=== PATIENT | female | born 1940 | race Caucasian/White ===

== ENCOUNTER 2020-02-16 13:35 | Inpatient (IN) ==
[2020-02-16 14:02] LABS: Bilirubin,Urine Negative (Negative); Blood, Urine Small mg/dL (Negative); Glucose,Urine (UA) Negative (Negative); Ketones,Urine 20 mg/dL (Negative); Mucus,Urine Occasional /LPF (Occasional); Nitrite,Urine Positive (Negative); Protein,Urine 30 MG/DL; RBC,Urine 1 /HPF (0-4); Squamous Epithelial Cell,Urine Occasional /HPF (0-10); Urine Appearance CLEAR (Clear); Urine Color Amber (Yellow); Urine Specific Gravity 1.024 (1.001-1.035); WBC,Urine 3 /HPF (0-6)
[2020-02-16 14:26] LABS: Basophils % 0.4 % (0.0-0.8); Hematocrit 39.1 VOL% (35.7-47.0); Hemoglobin 13.3 GM/DL (12.0-16.0); Lymphocytes # 1.1 10*3/uL (1.4-4.0); Lymphocytes % 22.4 % (21.3-54.2); Mean Corpuscular Volume 96.3 FL (87-102); Mean Platelet Volume 10.6 FL (9.6-12.0); Monocytes % 13.3 % (1.7-12.7); Neutrophils % 63.9 % (38.7-73.9); Platelet Count 167 T/CUMM (130-400); Red Blood Count 4.06 MC/CUMM (3.8-5.5); Red Cell Distribution Width 13.1 % (9.3-17.3); White Blood Count 5.1 T/CUMM (4-12)
[2020-02-16 14:53] LABS: Albumin 3.5 G/DL (3.4-5.0); Bilirubin,Total 0.6 MG/DL (0.2-1.0); Calcium 8.3 MG/DL (8.5-10.1); Osmolality,Calculated 260.8 MOS/KG (273-304)
[2020-02-16] MEDS ORDERED: SODIUM CHLORIDE 0.9% 1,000 ML IV STA (15:45)
[2020-02-16] MEDS ORDERED: MORPHINE 4 MG/1 ML VIAL IV PRN (18:30)
[2020-02-16] MEDS ORDERED: DEXTROSE 50% 25 GM/50 ML VIAL IV PRN (18:30)
[2020-02-16] MEDS ORDERED: DOCUSATE SODIUM 100 MG CAPSULE PO PRN (18:30)
[2020-02-16] MEDS ORDERED: LACTULOSE 20 GM/30 ML UDCUP PO PRN (18:30)
[2020-02-16] MEDS ORDERED: hydrALAZINE 20 MG/1 ML VIAL IV PRN (18:30)
[2020-02-16] MEDS ORDERED: GLUCAGON 1 MG VIAL IM PRN (18:30)
[2020-02-16] MEDS: cefTRIAXone 1,000 MG in SYRINGE 1 EACH IV SCH (19:10)
[2020-02-16] MEDS: SODIUM CHLORIDE 0.9% 1,000 ML IV SCH (20:50)
[2020-02-16] MEDS ORDERED: SODIUM CHLORIDE 0.9% 1,000 ML IV ONE (21:00)
[2020-02-16] MEDS: ACETAMINOPHEN 325 MG TABLET PO PRN (22:12)
[2020-02-16] MEDS: ENOXAPARIN 40 MG/0.4 ML SYRINGE SUBCUT SCH (22:28)
[2020-02-17 04:48] LABS: Basophils % 0.3 % (0.0-0.8); Eosinophils % 0.3 % (0.00-10.9); Hematocrit 36.4 VOL% (35.7-47.0); Hemoglobin 12.3 GM/DL (12.0-16.0); Immature Granulocytes % 0.6 %; Immature Granulocytes Absolute 0.02 #; Lymphocytes # 1.3 10*3/uL (1.4-4.0); Lymphocytes % 36.2 % (21.3-54.2); Mean Corpuscular HGB Conc 33.8 GM/DL (32-36); Mean Corpuscular Volume 96.8 FL (87-102); Mean Platelet Volume 10.2 FL (9.6-12.0); Monocytes % 13.6 % (1.7-12.7); Platelet Count 164 T/CUMM (130-400); Red Blood Count 3.76 MC/CUMM (3.8-5.5); Red Cell Distribution Width 13.2 % (9.3-17.3); White Blood Count 3.6 T/CUMM (4-12)
[2020-02-17] MEDS: ACETAMINOPHEN 325 MG TABLET PO PRN ×2 (05:08→20:35)
[2020-02-17] MEDS: ONDANSETRON 4 MG/2 ML VIAL IV PRN ×2 (05:10→09:03)
[2020-02-17 05:25] LABS: PT Patient Result 10.5 SECS (9.8-11.9)
[2020-02-17 05:29] LABS: Alanine Aminotransferase 20 U/L (13-56); Albumin 3.1 G/DL (3.4-5.0); Alkaline Phosphatase 71 U/L (45-117); Aspartate Amino Transferase 31 U/L (0-37); Bilirubin,Total < 0.39 MG/DL (0.2-1.0); Blood Urea Nitrogen 14 MG/DL (7-18); Calcium 7.7 MG/DL (8.5-10.1); Estimated Glom Filtration Rate 73 ML/MIN; Ferritin 332.6 ng/ml (8-252); Glucose 81 MG/DL (74-106); HDL Cholesterol 75 MG/DL (40-60); Osmolality,Calculated 261.7 MOS/KG (273-304); Risk Ratio 1.73; Total Protein 6.1 G/DL (6.4-8.3); Triglycerides 85 MG/DL (2-150)
[2020-02-17 07:03] LABS: Sedimentation Rate-Westergren 25 MM/HR (0-30)
[2020-02-17] MEDS ORDERED: POTASSIUM CHLORIDE 20 MEQ TABLET PO ONE (08:05)
[2020-02-17] MEDS: AZITHROMYCIN 250 MG TABLET PO SCH (08:48)
[2020-02-17] MEDS: DEXAMETHASONE 10 MG/1 ML VIAL IV SCH (08:48)
[2020-02-17] MEDS: PANTOPRAZOLE 40 MG TABLET PO SCH (08:48)
[2020-02-17] MEDS: ASCORBIC ACID 500 MG TABLET PO SCH ×2 (08:48→20:10)
[2020-02-17] MEDS: ZINC SULFATE 220 MG CAPSULE PO SCH (08:48)
[2020-02-17] MEDS: SODIUM CHLORIDE 0.9% 1,000 ML IV SCH ×2 (17:12→20:40)
[2020-02-17] MEDS: cefTRIAXone 1,000 MG in SYRINGE 1 EACH IV SCH (18:29)
[2020-02-17] MEDS: ENOXAPARIN 40 MG/0.4 ML SYRINGE SUBCUT SCH ×2 (20:10→20:35)
[2020-02-17] MEDS: POTASSIUM CHLORIDE 10 MEQ TABLET PO SCH (20:10)
[2020-02-18 06:09] LABS: Hematocrit 38.1 VOL% (35.7-47.0); Hemoglobin 12.6 GM/DL (12.0-16.0); Immature Granulocytes % 0.5 %; Immature Granulocytes Absolute 0.02 #; Lymphocytes # 1.2 10*3/uL (1.4-4.0); Lymphocytes % 30.8 % (21.3-54.2); Mean Corpuscular HGB Conc 33.1 GM/DL (32-36); Mean Corpuscular Volume 99.2 FL (87-102); Mean Platelet Volume 10.7 FL (9.6-12.0); Monocytes % 11.6 % (1.7-12.7); Neutrophils % 57.1 % (38.7-73.9); Platelet Count 174 T/CUMM (130-400); Red Blood Count 3.84 MC/CUMM (3.8-5.5); Red Cell Distribution Width 13.1 % (9.3-17.3); White Blood Count 3.9 T/CUMM (4-12)
[2020-02-18 06:40] LABS: Albumin 2.8 G/DL (3.4-5.0); Bilirubin,Total 0.7 MG/DL (0.2-1.0); Ferritin 319.2 ng/ml (8-252); Osmolality,Calculated 269.2 MOS/KG (273-304)
[2020-02-18] MEDS ORDERED: LEVOTHYROXINE 88 MCG TABLET PO SCH (07:00)
[2020-02-18 07:58] LABS: Sedimentation Rate-Westergren 14 MM/HR (0-30)
[2020-02-18] MEDS: PANTOPRAZOLE 40 MG TABLET PO SCH (08:25)
[2020-02-18] MEDS: DEXAMETHASONE 10 MG/1 ML VIAL IV SCH (08:25)
[2020-02-18] MEDS: POTASSIUM CHLORIDE 10 MEQ TABLET PO SCH (08:26)
[2020-02-18] MEDS: AZITHROMYCIN 250 MG TABLET PO SCH (08:26)
[2020-02-18] MEDS: ASCORBIC ACID 500 MG TABLET PO SCH (08:26)
[2020-02-18] MEDS: ZINC SULFATE 220 MG CAPSULE PO SCH (08:26)
[2020-02-18] MEDS ORDERED: ATORVASTATIN 10 MG TABLET PO SCH (09:00)
[2020-02-18] MEDS: SODIUM CHLORIDE 0.9% 1,000 ML IV SCH (09:59)
[2020-02-18 11:33] VITALS: BP 145/62
== END 2020-02-18 13:45 | disposition home health service (06) | DRG 177 ==
LOC: EDUNIT# 13:35 → N.ED 13:35 → N.EDINP 18:30 → SUATTDRO 18:30 → N.EDINP 02-17 14:52 → N.2E 02-17 14:56
PROVIDERS: ADMIT Physician Assistant; ATTEND Internal Medicine

== ENCOUNTER 2020-02-20 08:14 | Inpatient (IN) ==
[2020-02-20] MEDS ORDERED: SODIUM CHLORIDE 0.9% 1,000 ML IV STA (08:30)
[2020-02-20 08:40] LABS: Basophils % 0.2 % (0.0-0.8); Eosinophils % 0.2 % (0.00-10.9); Hematocrit 40.6 VOL% (35.7-47.0); Immature Granulocytes % 0.3 %; Immature Granulocytes Absolute 0.02 #; Lymphocytes % 15.9 % (21.3-54.2); Mean Corpuscular HGB Conc 34.5 GM/DL (32-36); Mean Corpuscular Volume 96.2 FL (87-102); Mean Platelet Volume 10.3 FL (9.6-12.0); Monocytes % 10.5 % (1.7-12.7); Neutrophils % 72.9 % (38.7-73.9); Platelet Count 211 T/CUMM (130-400); Red Blood Count 4.22 MC/CUMM (3.8-5.5); White Blood Count 6.3 T/CUMM (4-12)
[2020-02-20 08:48] LABS: INR 0.9; PT Patient Result 9.8 SECS (9.8-11.9)
[2020-02-20 09:01] LABS: Albumin 3.1 G/DL (3.4-5.0); Bilirubin,Total 0.4 MG/DL (0.2-1.0); Calcium 8.3 MG/DL (8.5-10.1); Osmolality,Calculated 262.7 MOS/KG (273-304); Total Protein 6.8 G/DL (6.4-8.3)
[2020-02-20 09:45] LABS: ABG Base Excess 3.2 MMOL/L (-2.5-2.5); ABG HCO3 27.1 MMOL/L (20-26); ABG Oxygen Saturation 91.3 % (95-100); ABG PCO2 38.1 MM HG (35-48); ABG PO2 60.7 MM HG (80-95); ABG TCO2 23.8 MMOL/L (23-27)
[2020-02-20] MEDS ORDERED: DEXTROSE 50% 25 GM/50 ML VIAL IV PRN (10:56)
[2020-02-20] MEDS ORDERED: PROMETHAZINE 25 MG TABLET PO PRN (10:56)
[2020-02-20] MEDS ORDERED: GLUCAGON 1 MG VIAL IM PRN (10:56)
[2020-02-20] MEDS ORDERED: ENOXAPARIN 40 MG/0.4 ML SYRINGE SUBCUT SCH (11:00)
[2020-02-20] MEDS ORDERED: REMDESIVIR 200 MG in SODIUM CHLORIDE 0.9% 210 ML IV ONE (12:30)
[2020-02-20] MEDS ORDERED: SODIUM CHLORIDE 0.9% 1,000 ML IV PRN (14:39)
[2020-02-20] MEDS: ACETAMINOPHEN 325 MG TABLET PO PRN ×2 (15:06→20:25)
[2020-02-20] MEDS: POTASSIUM CHLORIDE 10 MEQ TABLET PO SCH (20:25)
[2020-02-20] MEDS: ASCORBIC ACID 500 MG TABLET PO SCH (20:25)
[2020-02-21] MEDS: ACETAMINOPHEN 325 MG TABLET PO PRN (02:07)
[2020-02-21] MEDS: guaiFENesin 200 MG/10 ML UDCUP PO PRN ×2 (02:07→10:17)
[2020-02-21 06:00] LABS: Basophils % 0.2 % (0.0-0.8); Hematocrit 37.3 VOL% (35.7-47.0); Hemoglobin 12.5 GM/DL (12.0-16.0); Immature Granulocytes % 0.5 %; Immature Granulocytes Absolute 0.03 #; Lymphocytes # 0.7 10*3/uL (1.4-4.0); Lymphocytes % 12.5 % (21.3-54.2); Mean Corpuscular HGB Conc 33.5 GM/DL (32-36); Mean Corpuscular Volume 97.1 FL (87-102); Mean Platelet Volume 10.7 FL (9.6-12.0); Monocytes % 8.2 % (1.7-12.7); Neutrophils % 78.6 % (38.7-73.9); Platelet Count 214 T/CUMM (130-400); Red Blood Count 3.84 MC/CUMM (3.8-5.5); Red Cell Distribution Width 13.1 % (9.3-17.3); White Blood Count 5.8 T/CUMM (4-12)
[2020-02-21 06:12] LABS: Osmolality,Calculated 266.4 MOS/KG (273-304)
[2020-02-21 07:22] LABS: Bilirubin,Urine Negative (Negative); Blood, Urine Negative (Negative); Glucose,Urine (UA) Negative (Negative); Ketones,Urine 5 mg/dL (Negative); Mucus,Urine Occasional /LPF (Occasional); Nitrite,Urine Negative (Negative); Protein,Urine Negative; RBC,Urine 2 /HPF (0-4); Squamous Epithelial Cell,Urine Occasional /HPF (0-10); Urine Appearance CLEAR (Clear); Urine Color Yellow (Yellow); Urine Specific Gravity 1.019 (1.001-1.035); Urine Urobilinogen < 2.0 EU/DL (0.2-1.0); WBC,Urine 1 /HPF (0-6)
[2020-02-21] MEDS: RIVAROXABAN 10 MG TABLET PO SCH (08:50)
[2020-02-21] MEDS: DEXAMETHASONE 4 MG TABLET PO SCH (08:51)
[2020-02-21] MEDS: ATORVASTATIN 10 MG TABLET PO SCH (08:51)
[2020-02-21] MEDS: ASCORBIC ACID 500 MG TABLET PO SCH ×2 (08:51→20:30)
[2020-02-21] MEDS: ZINC SULFATE 220 MG CAPSULE PO SCH (08:51)
[2020-02-21] MEDS: POTASSIUM CHLORIDE 10 MEQ TABLET PO SCH ×2 (08:51→20:30)
[2020-02-21] MEDS: BENZONATATE 100 MG CAPSULE PO SCH ×2 (08:51→20:30)
[2020-02-21] MEDS: LEVOTHYROXINE 88 MCG TABLET PO SCH (08:51)
[2020-02-21] MEDS: PANTOPRAZOLE 40 MG TABLET PO SCH (08:51)
[2020-02-21] MEDS ORDERED: MAGNESIUM SULF RIDER 2 GM in PREMIX 1 EACH IV ONE (09:00)
[2020-02-21] MEDS ORDERED: PANTOPRAZOLE 40 MG TABLET PO SCH (09:00)
[2020-02-21] MEDS: REMDESIVIR 100 MG in SODIUM CHLORIDE 0.9% 230 ML IV SCH (09:52)
[2020-02-21] MEDS: ONDANSETRON 4 MG/2 ML VIAL IV PRN (10:17)
[2020-02-22 05:28] LABS: Basophils % 0.2 % (0.0-0.8); Hematocrit 38.1 VOL% (35.7-47.0); Hemoglobin 12.6 GM/DL (12.0-16.0); Immature Granulocytes % 0.6 %; Immature Granulocytes Absolute 0.03 #; Lymphocytes # 0.7 10*3/uL (1.4-4.0); Lymphocytes % 14.1 % (21.3-54.2); Mean Corpuscular HGB Conc 33.1 GM/DL (32-36); Mean Corpuscular Volume 96.2 FL (87-102); Mean Platelet Volume 11.7 FL (9.6-12.0); Monocytes % 10.9 % (1.7-12.7); Neutrophils % 74.2 % (38.7-73.9); Platelet Count 214 T/CUMM (130-400); Red Blood Count 3.96 MC/CUMM (3.8-5.5); Red Cell Distribution Width 13.1 % (9.3-17.3); White Blood Count 5.1 T/CUMM (4-12)
[2020-02-22 05:50] LABS: Calcium 8.3 MG/DL (8.5-10.1); Osmolality,Calculated 268.4 MOS/KG (273-304)
[2020-02-22 06:42] LABS: Hypochromasia Slight; Microcytosis Slight; Ovalocytes Slight
[2020-02-22 06:43] LABS: Platelet Estimate Normal
[2020-02-22] MEDS: ZINC SULFATE 220 MG CAPSULE PO SCH (08:35)
[2020-02-22] MEDS: REMDESIVIR 100 MG in SODIUM CHLORIDE 0.9% 230 ML IV SCH (08:35)
[2020-02-22] MEDS: POTASSIUM CHLORIDE 10 MEQ TABLET PO SCH ×2 (08:36→22:58)
[2020-02-22] MEDS: ASCORBIC ACID 500 MG TABLET PO SCH ×2 (08:36→22:58)
[2020-02-22] MEDS: RIVAROXABAN 10 MG TABLET PO SCH (08:36)
[2020-02-22] MEDS: ATORVASTATIN 10 MG TABLET PO SCH (08:36)
[2020-02-22] MEDS: PANTOPRAZOLE 40 MG TABLET PO SCH (08:36)
[2020-02-22] MEDS: BENZONATATE 100 MG CAPSULE PO SCH ×2 (08:36→22:58)
[2020-02-22] MEDS: LEVOTHYROXINE 88 MCG TABLET PO SCH (08:36)
[2020-02-22] MEDS: ONDANSETRON 4 MG/2 ML VIAL IV PRN ×2 (08:37→22:57)
[2020-02-22] MEDS: DEXAMETHASONE 4 MG TABLET PO SCH (08:37)
[2020-02-22 10:02] LABS: ABG Base Excess 0.8 MMOL/L (-2.5-2.5); ABG HCO3 25.2 MMOL/L (20-26); ABG Oxygen Saturation 98.9 % (95-100); ABG PCO2 36.6 MM HG (35-48); ABG PH 7.438 (7.35-7.45); ABG TCO2 21.7 MMOL/L (23-27)
[2020-02-23 06:17] LABS: Basophils % 0.1 % (0.0-0.8); Hemoglobin 12.5 GM/DL (12.0-16.0); Immature Granulocytes % 0.4 %; Immature Granulocytes Absolute 0.05 #; Lymphocytes # 0.7 10*3/uL (1.4-4.0); Lymphocytes % 6.5 % (21.3-54.2); Mean Corpuscular HGB Conc 33.8 GM/DL (32-36); Mean Corpuscular Volume 96.4 FL (87-102); Mean Platelet Volume 10.8 FL (9.6-12.0); Monocytes % 6.4 % (1.7-12.7); Neutrophils % 86.6 % (38.7-73.9); Platelet Count 224 T/CUMM (130-400); Red Blood Count 3.84 MC/CUMM (3.8-5.5); Red Cell Distribution Width 13.2 % (9.3-17.3); White Blood Count 11.3 T/CUMM (4-12)
[2020-02-23 06:49] LABS: Calcium 8.2 MG/DL (8.5-10.1); Osmolality,Calculated 271.4 MOS/KG (273-304)
[2020-02-23] MEDS: ZINC SULFATE 220 MG CAPSULE PO SCH ×2 (08:38→09:23)
[2020-02-23] MEDS: ATORVASTATIN 10 MG TABLET PO SCH ×2 (08:38→09:22)
[2020-02-23] MEDS: LEVOTHYROXINE 88 MCG TABLET PO SCH ×2 (08:38→09:22)
[2020-02-23] MEDS: ASCORBIC ACID 500 MG TABLET PO SCH ×2 (08:38→09:23)
[2020-02-23] MEDS: BENZONATATE 100 MG CAPSULE PO SCH ×2 (08:38→09:22)
[2020-02-23] MEDS: PANTOPRAZOLE 40 MG TABLET PO SCH ×2 (08:39→09:22)
[2020-02-23] MEDS: DEXAMETHASONE 4 MG TABLET PO SCH ×2 (08:39→09:22)
[2020-02-23] MEDS: POTASSIUM CHLORIDE 10 MEQ TABLET PO SCH ×2 (09:09→09:22)
[2020-02-23] MEDS: REMDESIVIR 100 MG in SODIUM CHLORIDE 0.9% 230 ML IV SCH (09:09)
[2020-02-23] MEDS: RIVAROXABAN 10 MG TABLET PO SCH ×2 (09:09→09:23)
[2020-02-23 09:38] LABS: ABG Base Excess 1.9 MMOL/L (-2.5-2.5); ABG HCO3 25.9 MMOL/L (20-26); ABG Oxygen Saturation 92.5 % (95-100); ABG PCO2 37.7 MM HG (35-48); ABG PH 7.443 (7.35-7.45); ABG TCO2 22.7 MMOL/L (23-27)
[2020-02-23] MEDS: CEFEPIME 1,000 MG in SODIUM CHLORIDE 0.9% 100 ML IV SCH (14:36)
[2020-02-23] MEDS: ACETAMINOPHEN 325 MG TABLET PO PRN (14:36)
[2020-02-24] MEDS: CEFEPIME 1,000 MG in SODIUM CHLORIDE 0.9% 100 ML IV SCH ×4 (00:45→17:13)
[2020-02-24] MEDS: POTASSIUM CHLORIDE 10 MEQ TABLET PO SCH ×3 (00:46→21:52)
[2020-02-24] MEDS: ASCORBIC ACID 500 MG TABLET PO SCH ×3 (00:46→21:52)
[2020-02-24] MEDS: BENZONATATE 100 MG CAPSULE PO SCH ×3 (00:46→21:54)
[2020-02-24] MEDS ORDERED: METOCLOPRAMIDE 10 MG/2 ML VIAL IV PRN (09:10)
[2020-02-24] MEDS: REMDESIVIR 100 MG in SODIUM CHLORIDE 0.9% 230 ML IV SCH (11:00)
[2020-02-24] MEDS: DEXAMETHASONE 4 MG/1 ML VIAL IV SCH (11:00)
[2020-02-24] MEDS: FAMOTIDINE 20 MG/2 ML VIAL IV SCH ×2 (11:01→21:54)
[2020-02-24] MEDS: ONDANSETRON 4 MG/2 ML VIAL IV PRN (11:02)
[2020-02-24] MEDS: LEVOTHYROXINE 88 MCG TABLET PO SCH (11:06)
[2020-02-24] MEDS: ZINC SULFATE 220 MG CAPSULE PO SCH (11:06)
[2020-02-24] MEDS: ATORVASTATIN 10 MG TABLET PO SCH (11:06)
[2020-02-24] MEDS: RIVAROXABAN 10 MG TABLET PO SCH (11:06)
[2020-02-24] MEDS: DEXAMETHASONE 4 MG TABLET PO SCH (11:07)
[2020-02-24] MEDS: PANTOPRAZOLE 40 MG TABLET PO SCH (11:08)
[2020-02-24] MEDS: DICLOFENAC 1% GEL 100 GM TUBE TOP SCH ×4 (11:47→21:54)
[2020-02-24] MEDS: ENOXAPARIN 40 MG/0.4 ML SYRINGE SUBCUT SCH (21:53)
[2020-02-25] MEDS: CEFEPIME 1,000 MG in SODIUM CHLORIDE 0.9% 100 ML IV SCH ×4 (00:52→17:18)
[2020-02-25 04:27] LABS: Allen Test Positive
[2020-02-25 04:29] LABS: ABG HCO3 24.2 MMOL/L (20-26); ABG Oxygen Saturation 86.4 % (95-100); ABG PCO2 36.8 MM HG (35-48); ABG PH 7.423 (7.35-7.45); ABG PO2 53.1 MM HG (80-95); ABG TCO2 21.5 MMOL/L (23-27)
[2020-02-25 06:00] LABS: Basophils % 0.1 % (0.0-0.8); Hematocrit 35.1 VOL% (35.7-47.0); Hemoglobin 11.8 GM/DL (12.0-16.0); Immature Granulocytes % 0.6 %; Immature Granulocytes Absolute 0.07 #; Lymphocytes # 0.6 10*3/uL (1.4-4.0); Lymphocytes % 4.9 % (21.3-54.2); Mean Corpuscular HGB Conc 33.6 GM/DL (32-36); Mean Corpuscular Volume 96.2 FL (87-102); Mean Platelet Volume 10.6 FL (9.6-12.0); Monocytes % 2.8 % (1.7-12.7); Neutrophils % 91.6 % (38.7-73.9); Platelet Count 185 T/CUMM (130-400); Red Blood Count 3.65 MC/CUMM (3.8-5.5); White Blood Count 11.6 T/CUMM (4-12)
[2020-02-25 06:35] LABS: Albumin 2.3 G/DL (3.4-5.0); Bilirubin,Total 1.2 MG/DL (0.2-1.0); Calcium 8.4 MG/DL (8.5-10.1); Osmolality,Calculated 271.2 MOS/KG (273-304)
[2020-02-25 07:11] LABS: Band Neutrophils 1 % (0-10); Lymphocytes 1 % (20-55); Microcytosis Slight; Ovalocytes Slight; Platelet Estimate Adequate; Segmented Neutrophils 96 % (50-85); Total Cells Counted 100
[2020-02-25] MEDS ORDERED: FUROSEMIDE 40 MG/4 ML VIAL IV ONE (08:06)
[2020-02-25] MEDS: ENOXAPARIN 40 MG/0.4 ML SYRINGE SUBCUT SCH ×2 (09:21→20:49)
[2020-02-25] MEDS: DEXAMETHASONE 4 MG/1 ML VIAL IV SCH (09:21)
[2020-02-25] MEDS: ASCORBIC ACID 500 MG TABLET PO SCH ×2 (09:22→20:50)
[2020-02-25] MEDS: ZINC SULFATE 220 MG CAPSULE PO SCH (09:22)
[2020-02-25] MEDS: BENZONATATE 100 MG CAPSULE PO SCH ×2 (09:22→20:50)
[2020-02-25] MEDS: ATORVASTATIN 10 MG TABLET PO SCH (09:22)
[2020-02-25] MEDS: FAMOTIDINE 20 MG/2 ML VIAL IV SCH ×2 (09:22→20:53)
[2020-02-25] MEDS: LEVOTHYROXINE 88 MCG TABLET PO SCH (09:22)
[2020-02-25] MEDS: POTASSIUM CHLORIDE 10 MEQ TABLET PO SCH ×2 (09:22→20:50)
[2020-02-25] MEDS: DICLOFENAC 1% GEL 100 GM TUBE TOP SCH ×4 (09:30→20:50)
[2020-02-25] MEDS: ONDANSETRON 4 MG/2 ML VIAL IV PRN (10:23)
[2020-02-26] MEDS: CEFEPIME 1,000 MG in SODIUM CHLORIDE 0.9% 100 ML IV SCH ×4 (00:55→17:57)
[2020-02-26 06:33] LABS: Basophils % 0.1 % (0.0-0.8); Hematocrit 33.4 VOL% (35.7-47.0); Hemoglobin 11.4 GM/DL (12.0-16.0); Immature Granulocytes % 0.5 %; Immature Granulocytes Absolute 0.06 #; Lymphocytes # 0.4 10*3/uL (1.4-4.0); Lymphocytes % 2.8 % (21.3-54.2); Mean Corpuscular HGB Conc 34.1 GM/DL (32-36); Mean Corpuscular Volume 95.7 FL (87-102); Mean Platelet Volume 10.8 FL (9.6-12.0); Monocytes % 3.6 % (1.7-12.7); Platelet Count 215 T/CUMM (130-400); Red Blood Count 3.49 MC/CUMM (3.8-5.5); Red Cell Distribution Width 13.2 % (9.3-17.3); White Blood Count 13.2 T/CUMM (4-12)
[2020-02-26 06:58] LABS: Calcium 7.9 MG/DL (8.5-10.1); Osmolality,Calculated 273.2 MOS/KG (273-304)
[2020-02-26 07:07] LABS: Hypochromasia 1+; Lymphocytes 2 % (20-55); Microcytosis 1+; Platelet Estimate Adequate; Segmented Neutrophils 95 % (50-85); Total Cells Counted 100
[2020-02-26 08:08] LABS: Calcium 7.8 MG/DL (8.5-10.1); Ferritin 750.5 ng/ml (8-252); Osmolality,Calculated 273.2 MOS/KG (273-304)
[2020-02-26] MEDS: DEXAMETHASONE 4 MG/1 ML VIAL IV SCH (09:47)
[2020-02-26] MEDS: FAMOTIDINE 20 MG/2 ML VIAL IV SCH ×2 (09:47→21:57)
[2020-02-26] MEDS: POTASSIUM CHLORIDE 10 MEQ TABLET PO SCH ×2 (10:03→22:43)
[2020-02-26] MEDS: ATORVASTATIN 10 MG TABLET PO SCH (10:03)
[2020-02-26] MEDS: BENZONATATE 100 MG CAPSULE PO SCH ×2 (10:04→21:58)
[2020-02-26] MEDS: ASCORBIC ACID 500 MG TABLET PO SCH ×2 (10:04→21:58)
[2020-02-26] MEDS: RIVAROXABAN 10 MG TABLET PO SCH (10:04)
[2020-02-26] MEDS: LEVOTHYROXINE 88 MCG TABLET PO SCH (10:04)
[2020-02-26] MEDS: ZINC SULFATE 220 MG CAPSULE PO SCH (10:04)
[2020-02-26] MEDS: DICLOFENAC 1% GEL 100 GM TUBE TOP SCH ×4 (10:04→22:43)
[2020-02-26] MEDS: ENOXAPARIN 40 MG/0.4 ML SYRINGE SUBCUT SCH (10:05)
[2020-02-26] MEDS ORDERED: FUROSEMIDE 40 MG/4 ML VIAL IV ONE (16:59)
[2020-02-27] MEDS: CEFEPIME 1,000 MG in SODIUM CHLORIDE 0.9% 100 ML IV SCH ×4 (01:20→17:24)
[2020-02-27 06:33] LABS: Calcium 8.3 MG/DL (8.5-10.1); Ferritin 600.4 ng/ml (8-252); Osmolality,Calculated 271.4 MOS/KG (273-304)
[2020-02-27] MEDS: DEXAMETHASONE 4 MG/1 ML VIAL PO SCH ×2 (07:59→09:05)
[2020-02-27] MEDS: LEVOTHYROXINE 88 MCG TABLET PO SCH ×3 (08:00→11:53)
[2020-02-27] MEDS: POTASSIUM CHLORIDE 10 MEQ TABLET PO SCH ×3 (08:00→20:55)
[2020-02-27] MEDS: ATORVASTATIN 10 MG TABLET PO SCH ×3 (08:00→11:53)
[2020-02-27] MEDS: ASCORBIC ACID 500 MG TABLET PO SCH ×4 (08:01→20:55)
[2020-02-27] MEDS: RIVAROXABAN 10 MG TABLET PO SCH ×3 (08:01→11:53)
[2020-02-27] MEDS: DICLOFENAC 1% GEL 100 GM TUBE TOP SCH ×4 (08:01→20:55)
[2020-02-27] MEDS: BENZONATATE 100 MG CAPSULE PO SCH ×4 (08:01→20:55)
[2020-02-27] MEDS: ZINC SULFATE 220 MG CAPSULE PO SCH ×3 (08:01→11:53)
[2020-02-27] MEDS: FAMOTIDINE 20 MG/2 ML VIAL IV SCH ×2 (09:02→20:56)
[2020-02-27] MEDS: ONDANSETRON 4 MG/2 ML VIAL IV PRN ×2 (10:31→20:56)
[2020-02-28] MEDS: CEFEPIME 1,000 MG in SODIUM CHLORIDE 0.9% 100 ML IV SCH ×4 (00:56→17:09)
[2020-02-28] MEDS: DEXAMETHASONE 4 MG/1 ML VIAL PO SCH (07:59)
[2020-02-28] MEDS: BENZONATATE 100 MG CAPSULE PO SCH ×2 (08:00→20:57)
[2020-02-28] MEDS: LEVOTHYROXINE 88 MCG TABLET PO SCH (08:00)
[2020-02-28] MEDS: ZINC SULFATE 220 MG CAPSULE PO SCH (08:00)
[2020-02-28] MEDS: DICLOFENAC 1% GEL 100 GM TUBE TOP SCH ×4 (08:00→20:57)
[2020-02-28] MEDS: ASCORBIC ACID 500 MG TABLET PO SCH ×2 (08:00→20:57)
[2020-02-28] MEDS: RIVAROXABAN 10 MG TABLET PO SCH (08:00)
[2020-02-28] MEDS: ATORVASTATIN 10 MG TABLET PO SCH (08:00)
[2020-02-28] MEDS: POTASSIUM CHLORIDE 10 MEQ TABLET PO SCH ×2 (08:01→20:57)
[2020-02-28] MEDS: ONDANSETRON 4 MG/2 ML VIAL IV PRN (09:14)
[2020-02-28] MEDS: FAMOTIDINE 20 MG/2 ML VIAL IV SCH ×2 (09:41→20:57)
[2020-02-28] MEDS: CITALOPRAM 20 MG TABLET PO SCH (10:50)
[2020-02-29] MEDS: CEFEPIME 1,000 MG in SODIUM CHLORIDE 0.9% 100 ML IV SCH ×4 (01:18→18:32)
[2020-02-29] MEDS: guaiFENesin 200 MG/10 ML UDCUP PO PRN ×2 (01:40→20:24)
[2020-02-29 06:30] LABS: Basophils % 0.1 % (0.0-0.8); Eosinophils % 0.1 % (0.00-10.9); Hematocrit 34.7 VOL% (35.7-47.0); Hemoglobin 11.7 GM/DL (12.0-16.0); Immature Granulocytes % 1.2 %; Immature Granulocytes Absolute 0.17 #; Lymphocytes # 0.5 10*3/uL (1.4-4.0); Lymphocytes % 3.6 % (21.3-54.2); Mean Corpuscular HGB Conc 33.7 GM/DL (32-36); Mean Corpuscular Volume 95.1 FL (87-102); Monocytes % 2.3 % (1.7-12.7); Neutrophils % 92.7 % (38.7-73.9); Platelet Count 202 T/CUMM (130-400); Red Blood Count 3.65 MC/CUMM (3.8-5.5); Red Cell Distribution Width 12.9 % (9.3-17.3); White Blood Count 14.5 T/CUMM (4-12)
[2020-02-29 06:43] LABS: Albumin 2.2 G/DL (3.4-5.0); Bilirubin,Total 0.6 MG/DL (0.2-1.0); Calcium 8.1 MG/DL (8.5-10.1); Ferritin 616.3 ng/ml (8-252); Osmolality,Calculated 275.2 MOS/KG (273-304); Total Protein 5.9 G/DL (6.4-8.3)
[2020-02-29 07:08] LABS: Lymphocytes 3 % (20-55); Segmented Neutrophils 96 % (50-85); Total Cells Counted 100
[2020-02-29 07:11] LABS: Hypochromasia 1+; Microcytosis 1+
[2020-02-29 07:12] LABS: Platelet Estimate Normal
[2020-02-29 08:59] LABS: Sedimentation Rate-Westergren 15 MM/HR (0-30)
[2020-02-29] MEDS: ASCORBIC ACID 500 MG TABLET PO SCH ×2 (09:57→20:24)
[2020-02-29] MEDS: POTASSIUM CHLORIDE 10 MEQ TABLET PO SCH ×2 (09:57→20:24)
[2020-02-29] MEDS: ZINC SULFATE 220 MG CAPSULE PO SCH (09:57)
[2020-02-29] MEDS: LEVOTHYROXINE 88 MCG TABLET PO SCH (09:57)
[2020-02-29] MEDS: CITALOPRAM 20 MG TABLET PO SCH (09:57)
[2020-02-29] MEDS: RIVAROXABAN 10 MG TABLET PO SCH (09:57)
[2020-02-29] MEDS: BENZONATATE 100 MG CAPSULE PO SCH ×2 (09:57→20:24)
[2020-02-29] MEDS: ATORVASTATIN 10 MG TABLET PO SCH (09:58)
[2020-02-29] MEDS: FAMOTIDINE 20 MG TABLET PO SCH ×2 (09:58→20:24)
[2020-02-29] MEDS: DICLOFENAC 1% GEL 100 GM TUBE TOP SCH ×4 (10:14→20:24)
[2020-02-29] MEDS: DEXAMETHASONE 4 MG/1 ML VIAL PO SCH (12:17)
[2020-03-01] MEDS: CEFEPIME 1,000 MG in SODIUM CHLORIDE 0.9% 100 ML IV SCH ×4 (01:06→18:23)
[2020-03-01] MEDS: guaiFENesin 200 MG/10 ML UDCUP PO PRN (04:46)
[2020-03-01 06:54] LABS: Basophils % 0.1 % (0.0-0.8); Eosinophils % 0.3 % (0.00-10.9); Hemoglobin 11.6 GM/DL (12.0-16.0); Immature Granulocytes % 1.2 %; Immature Granulocytes Absolute 0.17 #; Lymphocytes # 0.5 10*3/uL (1.4-4.0); Lymphocytes % 3.3 % (21.3-54.2); Mean Corpuscular HGB Conc 34.1 GM/DL (32-36); Mean Platelet Volume 10.6 FL (9.6-12.0); Monocytes % 2.4 % (1.7-12.7); Neutrophils % 92.7 % (38.7-73.9); Platelet Count 196 T/CUMM (130-400); Red Blood Count 3.58 MC/CUMM (3.8-5.5); Red Cell Distribution Width 12.7 % (9.3-17.3); White Blood Count 14.4 T/CUMM (4-12)
[2020-03-01 07:05] LABS: Albumin 2.2 G/DL (3.4-5.0); Bilirubin,Total 0.6 MG/DL (0.2-1.0); Ferritin 705.3 ng/ml (8-252); Osmolality,Calculated 267.5 MOS/KG (273-304); Total Protein 5.8 G/DL (6.4-8.3)
[2020-03-01 08:04] LABS: Sedimentation Rate-Westergren 35 MM/HR (0-30)
[2020-03-01] MEDS: LORazepam 2 MG/1 ML VIAL IV PRN (08:14)
[2020-03-01 08:22] LABS: Anisocytosis 1+; Band Neutrophils 3 % (0-10); Lymphocytes 3 % (20-55); Platelet Estimate Normal; Segmented Neutrophils 91 % (50-85); Total Cells Counted 100
[2020-03-01 08:23] LABS: Burr Cells Few; Macrocytosis Slight; Poikilocytosis Slight
[2020-03-01] MEDS: ASCORBIC ACID 500 MG TABLET PO SCH ×2 (08:48→20:36)
[2020-03-01] MEDS: BENZONATATE 100 MG CAPSULE PO SCH ×2 (08:48→20:36)
[2020-03-01] MEDS: FAMOTIDINE 20 MG TABLET PO SCH ×2 (08:48→20:36)
[2020-03-01] MEDS: LEVOTHYROXINE 88 MCG TABLET PO SCH (08:48)
[2020-03-01] MEDS: RIVAROXABAN 10 MG TABLET PO SCH (08:48)
[2020-03-01] MEDS: POTASSIUM CHLORIDE 10 MEQ TABLET PO SCH ×2 (08:48→20:36)
[2020-03-01] MEDS: CITALOPRAM 20 MG TABLET PO SCH (08:48)
[2020-03-01] MEDS: ZINC SULFATE 220 MG CAPSULE PO SCH (08:49)
[2020-03-01] MEDS: DEXAMETHASONE 4 MG/1 ML VIAL PO SCH (08:49)
[2020-03-01] MEDS: ATORVASTATIN 10 MG TABLET PO SCH (08:49)
[2020-03-01] MEDS: DICLOFENAC 1% GEL 100 GM TUBE TOP SCH ×4 (08:51→21:03)
[2020-03-01] MEDS: FUROSEMIDE 40 MG/4 ML VIAL IV SCH (12:28)
[2020-03-01] MEDS: ONDANSETRON 4 MG/2 ML VIAL IV PRN (12:50)
[2020-03-01 16:44] LABS: ABG Base Excess 4.2 MMOL/L (-2.5-2.5); ABG HCO3 28.1 MMOL/L (20-26); ABG Oxygen Saturation 95.4 % (95-100); ABG PCO2 41.6 MM HG (35-48); ABG PH 7.446 (7.35-7.45); ABG PO2 78.5 MM HG (80-95); ABG TCO2 25.3 MMOL/L (23-27); Allen Test Positive; Pt O2 Delivery Device Other
[2020-03-01] MEDS: methylPREDNISolone SOD SUC 40 MG/1 ML VIAL IV SCH (17:39)
[2020-03-02] MEDS: methylPREDNISolone SOD SUC 40 MG/1 ML VIAL IV SCH ×3 (01:55→17:06)
[2020-03-02] MEDS: CEFEPIME 1,000 MG in SODIUM CHLORIDE 0.9% 100 ML IV SCH (02:00)
[2020-03-02 04:29] LABS: Basophils % 0.1 % (0.0-0.8); Hematocrit 34.8 VOL% (35.7-47.0); Hemoglobin 11.9 GM/DL (12.0-16.0); Immature Granulocytes % 1.5 %; Immature Granulocytes Absolute 0.18 #; Lymphocytes # 0.3 10*3/uL (1.4-4.0); Lymphocytes % 2.5 % (21.3-54.2); Mean Corpuscular HGB Conc 34.2 GM/DL (32-36); Mean Corpuscular Volume 93.8 FL (87-102); Mean Platelet Volume 10.7 FL (9.6-12.0); Monocytes % 2.1 % (1.7-12.7); Neutrophils % 93.8 % (38.7-73.9); Platelet Count 186 T/CUMM (130-400); Red Blood Count 3.71 MC/CUMM (3.8-5.5); Red Cell Distribution Width 12.8 % (9.3-17.3); White Blood Count 12.3 T/CUMM (4-12)
[2020-03-02 04:44] LABS: Allen Test Positive; Pt O2 Delivery Device Other
[2020-03-02 04:46] LABS: ABG Base Excess 4.3 MMOL/L (-2.5-2.5); ABG HCO3 28.1 MMOL/L (20-26); ABG Oxygen Saturation 92.9 % (95-100); ABG PCO2 39.2 MM HG (35-48); ABG PH 7.465 (7.35-7.45); ABG PO2 67.4 MM HG (80-95); ABG TCO2 24.9 MMOL/L (23-27)
[2020-03-02 05:07] LABS: Platelet Estimate Normal
[2020-03-02 05:17] LABS: Albumin 2.3 G/DL (3.4-5.0); Bilirubin,Total 1.2 MG/DL (0.2-1.0); Calcium 7.9 MG/DL (8.5-10.1); Ferritin 663.5 ng/ml (8-252); Osmolality,Calculated 265.9 MOS/KG (273-304); Total Protein 5.9 G/DL (6.4-8.3)
[2020-03-02 07:58] LABS: Sedimentation Rate-Westergren 34 MM/HR (0-30)
[2020-03-02] MEDS: RIVAROXABAN 10 MG TABLET PO SCH (09:12)
[2020-03-02] MEDS: ZINC SULFATE 220 MG CAPSULE PO SCH (09:12)
[2020-03-02] MEDS: ASCORBIC ACID 500 MG TABLET PO SCH ×2 (09:12→20:03)
[2020-03-02] MEDS: CITALOPRAM 20 MG TABLET PO SCH (09:12)
[2020-03-02] MEDS: FAMOTIDINE 20 MG TABLET PO SCH ×2 (09:12→20:03)
[2020-03-02] MEDS: POTASSIUM CHLORIDE 10 MEQ TABLET PO SCH ×2 (09:12→20:03)
[2020-03-02] MEDS: ATORVASTATIN 10 MG TABLET PO SCH (09:12)
[2020-03-02] MEDS: BENZONATATE 100 MG CAPSULE PO SCH ×2 (09:12→20:03)
[2020-03-02] MEDS: LEVOTHYROXINE 88 MCG TABLET PO SCH (09:12)
[2020-03-02] MEDS: DICLOFENAC 1% GEL 100 GM TUBE TOP SCH (09:13)
[2020-03-02] MEDS: FUROSEMIDE 40 MG/4 ML VIAL IV SCH (09:13)
[2020-03-03] MEDS: methylPREDNISolone SOD SUC 40 MG/1 ML VIAL IV SCH ×3 (00:11→16:23)
[2020-03-03] MEDS: LORazepam 2 MG/1 ML VIAL IV PRN (02:43)
[2020-03-03 04:06] LABS: ABG Base Excess 5.2 MMOL/L (-2.5-2.5); ABG Oxygen Saturation 88.7 % (95-100); ABG PCO2 39.8 MM HG (35-48); ABG PH 7.481 (7.35-7.45); ABG PO2 57.4 MM HG (80-95); ABG TCO2 30.3 MMOL/L (23-27); Allen Test Positive; Pt O2 Delivery Device Other
[2020-03-03 04:18] LABS: Albumin 2.3 G/DL (3.4-5.0); Bilirubin,Total 0.9 MG/DL (0.2-1.0); Calcium 7.8 MG/DL (8.5-10.1); Ferritin 668.2 ng/ml (8-252); Osmolality,Calculated 271.8 MOS/KG (273-304); Total Protein 5.8 G/DL (6.4-8.3)
[2020-03-03 04:20] LABS: Basophils % 0.1 % (0.0-0.8); Hematocrit 34.9 VOL% (35.7-47.0); Immature Granulocytes % 1.6 %; Immature Granulocytes Absolute 0.25 #; Lymphocytes # 0.5 10*3/uL (1.4-4.0); Mean Corpuscular HGB Conc 34.4 GM/DL (32-36); Mean Corpuscular Volume 94.1 FL (87-102); Mean Platelet Volume 10.8 FL (9.6-12.0); Monocytes % 2.7 % (1.7-12.7); Neutrophils % 92.6 % (38.7-73.9); Platelet Count 204 T/CUMM (130-400); Red Blood Count 3.71 MC/CUMM (3.8-5.5); Red Cell Distribution Width 12.6 % (9.3-17.3); White Blood Count 15.4 T/CUMM (4-12)
[2020-03-03 06:31] LABS: Platelet Estimate Normal
[2020-03-03] MEDS: RIVAROXABAN 10 MG TABLET PO SCH (08:41)
[2020-03-03] MEDS: CHOLECALCIFEROL 1,000 UNIT TABLET PO SCH (08:41)
[2020-03-03] MEDS: ATORVASTATIN 10 MG TABLET PO SCH (08:41)
[2020-03-03] MEDS: ASCORBIC ACID 500 MG TABLET PO SCH ×2 (08:41→20:40)
[2020-03-03] MEDS: LEVOTHYROXINE 88 MCG TABLET PO SCH (08:41)
[2020-03-03] MEDS: FAMOTIDINE 20 MG TABLET PO SCH ×2 (08:41→20:40)
[2020-03-03] MEDS: FUROSEMIDE 40 MG/4 ML VIAL IV SCH (08:41)
[2020-03-03] MEDS: BENZONATATE 100 MG CAPSULE PO SCH ×2 (08:41→20:40)
[2020-03-03] MEDS: POTASSIUM CHLORIDE 10 MEQ TABLET PO SCH ×2 (08:41→20:40)
[2020-03-03] MEDS: ZINC SULFATE 220 MG CAPSULE PO SCH (08:41)
[2020-03-03] MEDS ORDERED: FUROSEMIDE 40 MG/4 ML VIAL IV ONE ×2 (09:17→13:00)
[2020-03-03 11:32] LABS: Segmented Neutrophils 92 % (50-85); Total Cells Counted 100
[2020-03-03 11:33] LABS: Anisocytosis Slight; Band Neutrophils 3 % (0-10); Burr Cells Few; Lymphocytes 2 % (20-55); Macrocytosis Slight; Ovalocytes Few
[2020-03-03] MEDS: SODIUM CHLORIDE 1 GM TABLET PO SCH (20:40)
[2020-03-04] MEDS: methylPREDNISolone SOD SUC 40 MG/1 ML VIAL IV SCH ×3 (02:45→16:40)
[2020-03-04 06:49] LABS: Basophils % 0.1 % (0.0-0.8); Hematocrit 36.6 VOL% (35.7-47.0); Hemoglobin 12.6 GM/DL (12.0-16.0); Immature Granulocytes % 1.3 %; Immature Granulocytes Absolute 0.18 #; Lymphocytes # 0.5 10*3/uL (1.4-4.0); Lymphocytes % 3.5 % (21.3-54.2); Mean Corpuscular HGB Conc 34.4 GM/DL (32-36); Mean Corpuscular Volume 93.4 FL (87-102); Monocytes % 4.5 % (1.7-12.7); Neutrophils % 90.6 % (38.7-73.9); Platelet Count 231 T/CUMM (130-400); Red Blood Count 3.92 MC/CUMM (3.8-5.5); Red Cell Distribution Width 12.9 % (9.3-17.3); White Blood Count 13.9 T/CUMM (4-12)
[2020-03-04 07:15] LABS: Osmolality,Calculated 275.7 MOS/KG (273-304)
[2020-03-04 07:56] LABS: Lymphocytes 2 % (20-55); Ovalocytes Few; Segmented Neutrophils 97 % (50-85); Total Cells Counted 100
[2020-03-04 07:57] LABS: Platelet Estimate Normal; Schistocytes Slight; Target Cells Slight
[2020-03-04] MEDS: CHOLECALCIFEROL 1,000 UNIT TABLET PO SCH (09:13)
[2020-03-04] MEDS: ZINC SULFATE 220 MG CAPSULE PO SCH (09:13)
[2020-03-04] MEDS: FUROSEMIDE 40 MG/4 ML VIAL IV SCH (09:13)
[2020-03-04] MEDS: FAMOTIDINE 20 MG TABLET PO SCH ×2 (09:13→20:10)
[2020-03-04] MEDS: SODIUM CHLORIDE 1 GM TABLET PO SCH ×2 (09:13→20:10)
[2020-03-04] MEDS: ATORVASTATIN 10 MG TABLET PO SCH (09:13)
[2020-03-04] MEDS: POTASSIUM CHLORIDE 10 MEQ TABLET PO SCH ×2 (09:13→20:10)
[2020-03-04] MEDS: LEVOTHYROXINE 88 MCG TABLET PO SCH (09:13)
[2020-03-04] MEDS: BENZONATATE 100 MG CAPSULE PO SCH ×2 (09:13→20:10)
[2020-03-04] MEDS: RIVAROXABAN 10 MG TABLET PO SCH (09:13)
[2020-03-04] MEDS: ASCORBIC ACID 500 MG TABLET PO SCH ×2 (09:13→20:10)
[2020-03-05] MEDS: methylPREDNISolone SOD SUC 40 MG/1 ML VIAL IV SCH ×3 (00:50→17:44)
[2020-03-05] MEDS ORDERED: SODIUM CHLORIDE 0.65% NASAL SPRAY 45 ML BOTTLE BOTH NARES PRN (02:55)
[2020-03-05 06:06] LABS: Basophils % 0.1 % (0.0-0.8); Hematocrit 35.2 VOL% (35.7-47.0); Hemoglobin 12.3 GM/DL (12.0-16.0); Immature Granulocytes % 1.4 %; Immature Granulocytes Absolute 0.19 #; Lymphocytes # 0.6 10*3/uL (1.4-4.0); Mean Corpuscular HGB Conc 34.9 GM/DL (32-36); Mean Corpuscular Volume 93.1 FL (87-102); Mean Platelet Volume 10.8 FL (9.6-12.0); Monocytes % 5.7 % (1.7-12.7); Neutrophils % 88.8 % (38.7-73.9); Platelet Count 237 T/CUMM (130-400); Red Blood Count 3.78 MC/CUMM (3.8-5.5); Red Cell Distribution Width 12.8 % (9.3-17.3); White Blood Count 13.8 T/CUMM (4-12)
[2020-03-05 06:40] LABS: Albumin 2.4 G/DL (3.4-5.0); Bilirubin,Total 0.7 MG/DL (0.2-1.0); Osmolality,Calculated 283.1 MOS/KG (273-304); Total Protein 5.8 G/DL (6.4-8.3)
[2020-03-05 08:30] LABS: Band Neutrophils 3 % (0-10); Lymphocytes 5 % (20-55); Segmented Neutrophils 87 % (50-85); Total Cells Counted 100
[2020-03-05 08:31] LABS: Anisocytosis 1+; Macrocytosis 1+; Ovalocytes Few; Platelet Estimate Normal; Target Cells Few
[2020-03-05] MEDS: CHOLECALCIFEROL 1,000 UNIT TABLET PO SCH (09:31)
[2020-03-05] MEDS: ASCORBIC ACID 500 MG TABLET PO SCH ×2 (09:31→09:50)
[2020-03-05] MEDS: LEVOTHYROXINE 88 MCG TABLET PO SCH (09:31)
[2020-03-05] MEDS: BENZONATATE 100 MG CAPSULE PO SCH ×2 (09:31→09:50)
[2020-03-05] MEDS: ZINC SULFATE 220 MG CAPSULE PO SCH (09:31)
[2020-03-05] MEDS: POTASSIUM CHLORIDE 10 MEQ TABLET PO SCH (09:31)
[2020-03-05] MEDS: ATORVASTATIN 10 MG TABLET PO SCH (09:31)
[2020-03-05] MEDS: FAMOTIDINE 20 MG TABLET PO SCH (09:31)
[2020-03-05] MEDS: SODIUM CHLORIDE 1 GM TABLET PO SCH (09:31)
[2020-03-05] MEDS: RIVAROXABAN 10 MG TABLET PO SCH (09:31)
[2020-03-05] MEDS: FUROSEMIDE 40 MG/4 ML VIAL IV SCH (09:32)
[2020-03-05] MEDS ORDERED: BISACODYL 10 MG SUPP RECTAL ONE (10:55)
[2020-03-05] MEDS ORDERED: LACTULOSE 20 GM/30 ML UDCUP PO ONE (13:41)
[2020-03-05 20:21] VITALS: BP 135/58
== END 2020-03-05 20:26 | DRG 177 ==
LOC: EDUNIT# → EDBD → N.ED 08:14 → N.EDINP 08:14 → N.2E 11:08 → SUATTDRO 02-21 09:44 → N.CC 03-01 10:55 → N.2E 03-03 20:05
PROVIDERS: ADMIT Family Medicine; ATTEND Family Medicine

== ENCOUNTER 2021-08-23 15:45 | Inpatient (IN) ==
[2021-08-23 16:22] LABS: Basophils % 0.2 % (0.0-0.8); Eosinophils # 0.1 10*3/uL (0.0-0.87); Eosinophils % 0.6 % (0.00-10.9); Hematocrit 36.8 VOL% (35.7-47.0); Hemoglobin 12.1 GM/DL (12.0-16.0); Immature Granulocytes % 0.5 %; Immature Granulocytes Absolute 0.06 #; Lymphocytes # 0.6 10*3/uL (1.4-4.0); Mean Corpuscular HGB Conc 32.9 GM/DL (32-36); Mean Corpuscular Volume 98.9 FL (87-102); Mean Platelet Volume 10.3 FL (9.6-12.0); Monocytes # 0.8 10*3/uL (0.11-0.8); Monocytes % 6.4 % (1.7-12.7); Neutrophils % 87.3 % (38.7-73.9); Platelet Count 223 T/CUMM (130-400); Red Blood Count 3.72 MC/CUMM (3.8-5.5); Red Cell Distribution Width 13.4 % (9.3-17.3); White Blood Count 12.5 T/CUMM (4-12)
[2021-08-23 16:32] LABS: INR 0.9; PT Patient Result 10.2 SECS (10.5-12.0); Partial Thromboplastin Time 31.9 SECS (23.8-32.1)
[2021-08-23 16:44] LABS: Albumin 2.8 G/DL (3.4-5.0); Bilirubin,Total 2.2 MG/DL (0.20-1.00); Osmolality,Calculated 261.1 MOS/KG (273-304); Potassium 3.4 MMOL/L (3.5-5.1); Total Protein 6.9 G/DL (6.4-8.2)
[2021-08-23] MEDS ORDERED: ONDANSETRON 4 MG/2 ML VIAL IV STA (16:48)
[2021-08-23] MEDS ORDERED: LACTATED RINGERS 1,000 ML IV ONE (16:48)
[2021-08-23] MEDS ORDERED: LEVOFLOXACIN INJ 750 MG/150 ML PREMIX IV STA (16:49)
[2021-08-23] MEDS ORDERED: GLUCAGON 1 MG VIAL IM PRN (17:20)
[2021-08-23] MEDS ORDERED: DEXTROSE 10% 250 ML BAG IV PRN (17:24)
[2021-08-23] MEDS ORDERED: LACTATED RINGERS 1,000 ML IV SCH (17:30)
[2021-08-23] MEDS: ALBUTEROL/IPRATROPIUM 3 ML NEB RESP TX SCH ×2 (18:50→22:50)
[2021-08-23] MEDS ORDERED: cefTRIAXone 1,000 MG VIAL ONE (19:24)
[2021-08-23] MEDS: ENOXAPARIN 40 MG/0.4 ML SYRINGE SUBCUT SCH (19:35)
[2021-08-23] MEDS: cefTRIAXone 2,000 MG in SODIUM CHLORIDE 0.9% 100 ML IV SCH (19:35)
[2021-08-23] MEDS: methylPREDNISolone SOD SUC 40 MG/1 ML VIAL IV SCH (19:35)
[2021-08-23] MEDS: ATORVASTATIN 10 MG TABLET PO SCH (21:32)
[2021-08-24] MEDS: methylPREDNISolone SOD SUC 40 MG/1 ML VIAL IV SCH ×2 (01:35→10:33)
[2021-08-24 05:04] LABS: Basophils % 0.1 % (0.0-0.8); Hematocrit 31.7 VOL% (35.7-47.0); Hemoglobin 10.5 GM/DL (12.0-16.0); Immature Granulocytes % 0.4 %; Immature Granulocytes Absolute 0.05 #; Lymphocytes # 0.3 10*3/uL (1.4-4.0); Lymphocytes % 2.3 % (21.3-54.2); Mean Corpuscular HGB Conc 33.1 GM/DL (32-36); Mean Corpuscular Volume 97.5 FL (87-102); Mean Platelet Volume 11.2 FL (9.6-12.0); Monocytes # 0.1 10*3/uL (0.11-0.8); Neutrophils % 96.2 % (38.7-73.9); Platelet Count 194 T/CUMM (130-400); Red Blood Count 3.25 MC/CUMM (3.8-5.5); Red Cell Distribution Width 13.2 % (9.3-17.3); White Blood Count 12.4 T/CUMM (4-12)
[2021-08-24 05:25] LABS: Albumin 2.3 G/DL (3.4-5.0); Bilirubin,Total 0.9 MG/DL (0.20-1.00); Calcium 8.7 MG/DL (8.5-10.1); Osmolality,Calculated 259.2 MOS/KG (273-304); Potassium 3.6 MMOL/L (3.5-5.1)
[2021-08-24 05:33] LABS: Band Neutrophils 3 % (0-10); Lymphocytes 3 % (20-55); Total Cells Counted 100
[2021-08-24] MEDS: ALBUTEROL/IPRATROPIUM 3 ML NEB RESP TX SCH ×3 (07:15→19:50)
[2021-08-24] MEDS ORDERED: ALBUTEROL 2.5 MG/3 ML NEB RESP TX PRN (08:14)
[2021-08-24] MEDS: AZITHROMYCIN 250 MG TABLET PO SCH (10:29)
[2021-08-24] MEDS: LEVOTHYROXINE 88 MCG TABLET PO SCH (10:29)
[2021-08-24] MEDS: ASPIRIN EC 81 MG TABLET PO SCH (10:29)
[2021-08-24] MEDS: SODIUM CHLORIDE 0.9% 1,000 ML IV SCH (10:33)
[2021-08-24] MEDS ORDERED: ZINC OXIDE PASTE 113 GM TUBE TOP PRN (11:19)
[2021-08-24] MEDS: ENOXAPARIN 40 MG/0.4 ML SYRINGE SUBCUT SCH (18:17)
[2021-08-24] MEDS: cefTRIAXone 2,000 MG in SODIUM CHLORIDE 0.9% 100 ML IV SCH (18:18)
[2021-08-24] MEDS: ATORVASTATIN 10 MG TABLET PO SCH (20:26)
[2021-08-25] MEDS: ALBUTEROL/IPRATROPIUM 3 ML NEB RESP TX SCH ×4 (00:20→19:30)
[2021-08-25] MEDS: BENZONATATE 100 MG CAPSULE PO PRN ×4 (01:03→23:16)
[2021-08-25 05:03] LABS: Basophils % 0.1 % (0.0-0.8); Eosinophils % 0.1 % (0.00-10.9); Hematocrit 29.3 VOL% (35.7-47.0); Hemoglobin 9.7 GM/DL (12.0-16.0); Immature Granulocytes % 0.7 %; Immature Granulocytes Absolute 0.12 #; Lymphocytes % 6.1 % (21.3-54.2); Mean Corpuscular HGB Conc 33.1 GM/DL (32-36); Mean Corpuscular Volume 98.7 FL (87-102); Mean Platelet Volume 11.6 FL (9.6-12.0); Monocytes # 0.9 10*3/uL (0.11-0.8); Monocytes % 5.2 % (1.7-12.7); Neutrophils % 87.8 % (38.7-73.9); Platelet Count 200 T/CUMM (130-400); Red Blood Count 2.97 MC/CUMM (3.8-5.5); Red Cell Distribution Width 13.2 % (9.3-17.3); White Blood Count 16.8 T/CUMM (4-12)
[2021-08-25 05:20] LABS: Calcium 8.1 MG/DL (8.5-10.1); Osmolality,Calculated 262.9 MOS/KG (273-304); Potassium 3.5 MMOL/L (3.5-5.1)
[2021-08-25 05:53] LABS: Risk Ratio 1.67; VLDL Cholesterol 13.2 MG/DL
[2021-08-25] MEDS: ASPIRIN EC 81 MG TABLET PO SCH (08:12)
[2021-08-25] MEDS: AZITHROMYCIN 250 MG TABLET PO SCH (08:13)
[2021-08-25] MEDS: LEVOTHYROXINE 88 MCG TABLET PO SCH (08:13)
[2021-08-25] MEDS: SODIUM CHLORIDE 0.9% 1,000 ML IV SCH ×2 (08:15→10:45)
[2021-08-25] MEDS: methylPREDNISolone SOD SUC 40 MG/1 ML VIAL IV SCH (12:23)
[2021-08-25] MEDS ORDERED: MELATONIN 3 MG TABLET PO PRN ×2 (13:18→15:03)
[2021-08-25] MEDS: ENOXAPARIN 40 MG/0.4 ML SYRINGE SUBCUT SCH (17:25)
[2021-08-25] MEDS: cefTRIAXone 2,000 MG in SODIUM CHLORIDE 0.9% 100 ML IV SCH (17:26)
[2021-08-25] MEDS: ATORVASTATIN 10 MG TABLET PO SCH (20:39)
[2021-08-26] MEDS: ALBUTEROL/IPRATROPIUM 3 ML NEB RESP TX SCH ×4 (01:50→20:10)
[2021-08-26] MEDS: SODIUM CHLORIDE 0.9% 1,000 ML IV SCH ×2 (05:09→05:22)
[2021-08-26 06:51] LABS: Basophils % 0.1 % (0.0-0.8); Eosinophils # 0.2 10*3/uL (0.0-0.87); Eosinophils % 1.6 % (0.00-10.9); Hematocrit 31.7 VOL% (35.7-47.0); Hemoglobin 10.5 GM/DL (12.0-16.0); Immature Granulocytes % 0.8 %; Immature Granulocytes Absolute 0.08 #; Lymphocytes # 1.7 10*3/uL (1.4-4.0); Lymphocytes % 16.3 % (21.3-54.2); Mean Corpuscular HGB Conc 33.1 GM/DL (32-36); Mean Corpuscular Volume 99.1 FL (87-102); Mean Platelet Volume 10.9 FL (9.6-12.0); Monocytes # 0.6 10*3/uL (0.11-0.8); Neutrophils % 75.2 % (38.7-73.9); Platelet Count 261 T/CUMM (130-400); Red Cell Distribution Width 13.3 % (9.3-17.3); White Blood Count 10.6 T/CUMM (4-12)
[2021-08-26 07:21] LABS: Calcium 8.6 MG/DL (8.5-10.1); Osmolality,Calculated 271.1 MOS/KG (273-304); Potassium 3.5 MMOL/L (3.5-5.1)
[2021-08-26] MEDS: AZITHROMYCIN 250 MG TABLET PO SCH (09:10)
[2021-08-26] MEDS: ASPIRIN EC 81 MG TABLET PO SCH (09:11)
[2021-08-26] MEDS: methylPREDNISolone SOD SUC 40 MG/1 ML VIAL IV SCH (09:11)
[2021-08-26] MEDS: TRIAMTERENE/HCTZ 37.5-25 MG TABLET PO SCH (09:15)
[2021-08-26] MEDS: LEVOTHYROXINE 88 MCG TABLET PO SCH (09:15)
[2021-08-26] MEDS: ACETAMINOPHEN 325 MG TABLET PO PRN (13:56)
[2021-08-26] MEDS: BENZONATATE 100 MG CAPSULE PO PRN (13:56)
[2021-08-26] MEDS: cefTRIAXone 2,000 MG in SODIUM CHLORIDE 0.9% 100 ML IV SCH (17:54)
[2021-08-26] MEDS: ATORVASTATIN 10 MG TABLET PO SCH (21:01)
[2021-08-26] MEDS: ZALEPLON 5 MG CAPSULE PO PRN (22:01)
[2021-08-27] MEDS: ALBUTEROL/IPRATROPIUM 3 ML NEB RESP TX SCH ×4 (00:23→20:14)
[2021-08-27] MEDS ORDERED: PHENOL 1.4% THROAT SPRAY 177 ML BOTTLE PO PRN (04:07)
[2021-08-27 05:06] LABS: Basophils % 0.2 % (0.0-0.8); Eosinophils # 0.2 10*3/uL (0.0-0.87); Eosinophils % 1.9 % (0.00-10.9); Hematocrit 31.1 VOL% (35.7-47.0); Hemoglobin 10.1 GM/DL (12.0-16.0); Immature Granulocytes Absolute 0.09 #; Lymphocytes # 1.6 10*3/uL (1.4-4.0); Lymphocytes % 18.2 % (21.3-54.2); Mean Corpuscular HGB Conc 32.5 GM/DL (32-36); Mean Platelet Volume 10.8 FL (9.6-12.0); Monocytes # 0.6 10*3/uL (0.11-0.8); Monocytes % 6.8 % (1.7-12.7); Neutrophils % 71.9 % (38.7-73.9); Platelet Count 241 T/CUMM (130-400); Red Blood Count 3.14 MC/CUMM (3.8-5.5); Red Cell Distribution Width 13.4 % (9.3-17.3); White Blood Count 8.8 T/CUMM (4-12)
[2021-08-27 05:25] LABS: Calcium 8.9 MG/DL (8.5-10.1); Osmolality,Calculated 272.1 MOS/KG (273-304); Potassium 3.3 MMOL/L (3.5-5.1)
[2021-08-27] MEDS: TRIAMTERENE/HCTZ 37.5-25 MG TABLET PO SCH (08:20)
[2021-08-27] MEDS: AZITHROMYCIN 250 MG TABLET PO SCH (08:20)
[2021-08-27] MEDS: LEVOTHYROXINE 88 MCG TABLET PO SCH (08:21)
[2021-08-27] MEDS ORDERED: POTASSIUM CHLORIDE 20 MEQ TABLET PO ONE (08:36)
[2021-08-27] MEDS ORDERED: FUROSEMIDE 40 MG/4 ML VIAL IV ONE (10:16)
[2021-08-27] MEDS ORDERED: BENZOCAINE/MENTHOL LOZENGE 18/BOX PO PRN (10:18)
[2021-08-27] MEDS: methylPREDNISolone SOD SUC 40 MG/1 ML VIAL IV SCH (10:33)
[2021-08-27] MEDS: cefTRIAXone 2,000 MG in SODIUM CHLORIDE 0.9% 100 ML IV SCH (17:58)
[2021-08-27] MEDS: BENZONATATE 100 MG CAPSULE PO SCH (20:12)
[2021-08-27] MEDS: ATORVASTATIN 10 MG TABLET PO SCH (20:12)
[2021-08-27] MEDS: ACETAMINOPHEN 325 MG TABLET PO PRN (20:13)
[2021-08-27] MEDS: ZALEPLON 5 MG CAPSULE PO PRN (21:45)
[2021-08-28] MEDS: ALBUTEROL/IPRATROPIUM 3 ML NEB RESP TX SCH ×3 (00:04→13:00)
[2021-08-28 05:15] LABS: Basophils % 0.2 % (0.0-0.8); Eosinophils # 0.3 10*3/uL (0.0-0.87); Eosinophils % 3.2 % (0.00-10.9); Hematocrit 32.6 VOL% (35.7-47.0); Hemoglobin 10.6 GM/DL (12.0-16.0); Immature Granulocytes % 1.5 %; Immature Granulocytes Absolute 0.14 #; Lymphocytes # 1.9 10*3/uL (1.4-4.0); Lymphocytes % 19.5 % (21.3-54.2); Mean Corpuscular HGB Conc 32.5 GM/DL (32-36); Mean Corpuscular Volume 98.8 FL (87-102); Mean Platelet Volume 10.3 FL (9.6-12.0); Monocytes # 0.7 10*3/uL (0.11-0.8); Monocytes % 7.4 % (1.7-12.7); Neutrophils % 68.2 % (38.7-73.9); Platelet Count 296 T/CUMM (130-400); Red Cell Distribution Width 13.3 % (9.3-17.3); White Blood Count 9.5 T/CUMM (4-12)
[2021-08-28 05:30] LABS: Calcium 8.6 MG/DL (8.5-10.1); Osmolality,Calculated 266.5 MOS/KG (273-304); Potassium 4.5 MMOL/L (3.5-5.1)
[2021-08-28] MEDS ORDERED: ATROPINE 0.4 MG/1 ML VIAL IM ONE (07:00)
[2021-08-28] MEDS ORDERED: MEPERIDINE 50 MG/1 ML VIAL IM ONE (07:00)
[2021-08-28] MEDS ORDERED: PROMETHAZINE 25 MG/1 ML VIAL IM ONE (07:00)
[2021-08-28] MEDS ORDERED: LIDOCAINE 2% VISCOUS 100 ML BOTTLE SWISH/SPIT ONE (07:30)
[2021-08-28] MEDS ORDERED: MIDAZOLAM 2 MG/2 ML VIAL IV ONE (07:30)
[2021-08-28] MEDS ORDERED: LIDOCAINE 1% 20 ML VIAL MISC INJ ONE (07:30)
[2021-08-28] MEDS ORDERED: LIDOCAINE 2% 20 ML VIAL RESP TX ONE (07:30)
[2021-08-28] MEDS: BENZONATATE 100 MG CAPSULE PO SCH (10:50)
[2021-08-28] MEDS: LEVOTHYROXINE 88 MCG TABLET PO SCH (10:51)
[2021-08-28] MEDS: AZITHROMYCIN 250 MG TABLET PO SCH (10:51)
[2021-08-28] MEDS: methylPREDNISolone SOD SUC 40 MG/1 ML VIAL IV SCH (10:53)
[2021-08-28] MEDS ORDERED: BISACODYL 10 MG SUPP RECTAL ONE (11:45)
[2021-08-28 11:54] VITALS: BP 106/60
[2021-08-31 21:56] LABS: M. Tuberculosis PCR Result Negative (Negative)
== END 2021-08-28 14:52 | disposition home health service (06) | DRG 194 ==
LOC: N.ED 15:45 → SUATTDRO 17:20 → N.EDINP 17:20 → N.5E 19:48
PROVIDERS: ADMIT Emergency Medicine; ATTEND Internal Medicine
PROC: BRONCHB (2021-08-28 07:35)